=== PATIENT | female | born 1980 | race Two or more races ===

== ENCOUNTER 2017-03-04 17:49 | Emergency (ER) | payer OTHER, SELFPAY ==
[~2017-03-04] VITALS: Ht 152.4 cm; Wt 56.3 kg
[2017-03-04 17:51] VITALS: BP 148/84
== END 2017-03-04 18:19 | disposition home or self-care (01) ==
LOC: ED 18:15
DX: J30.2 Other seasonal allergic rhinitis (principal); R22.0 Localized swelling, mass and lump, head
CPT/HCPCS: 99283